=== PATIENT | female | born 1990 | race American Indian/Alaskan Native ===

== ENCOUNTER 2020-04-29 22:26 | Emergency (ER) | payer OTHER ==
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
[2020-04-29] MEDS ORDERED: KETOROLAC 30 MG/1 ML INJ IM ONE (23:10)
[2020-04-29] MEDS ORDERED: ACETAMINOPHEN 325 MG TAB PO ONE (23:10)
[2020-04-30 00:32] VITALS: BP 115/79
== END 2020-04-30 00:52 | disposition home or self-care (01) ==
LOC: ED 22:26
DX: N89.8 Other specified noninflammatory disorders of vagina (principal); M54.5 Low back pain; Z98.890 Other specified postprocedural states; Z79.899 Other long term (current) drug therapy
CPT/HCPCS: 96372; 99282; J1885